=== PATIENT | female | born 1995 ===

== ENCOUNTER 2017-09-15 14:18 | Emergency (ER) | payer OTHER ==
[2017-09-15 14:24] VITALS: O2SAT 100
[2017-09-15] MEDS ORDERED: Sodium Chloride 0.9% 1,000 ML IV ONE (14:30)
--- NOTE | 2017-09-15 14:38 | C.PDOC ---
History Of Present Illness 22 y/o female , Miscarriage 1, presents to ED for complaints of pelvic pain that began today. Patient is 10 weeks . She reports having an US done 3 days ago. Denies urinary symptoms, vaginal discharge or bleeding. Time Seen by Provider: 09/15/17 14:26 Chief Complaint (Nursing): Female Genitourinary History Per: Patient History/Exam Limitations: no limitations Onset/Duration Of Symptoms: Hrs Current Symptoms Are (Timing): Still Present Quality Of Discomfort: "Pain" Associated Symptoms: denies: Fever, Chills, Nausea, Vomiting, Diarrhea, Urinary Symptoms Alleviating Factors: None Recent travel outside of the [place]: No Abnormal Vaginal Bleeding: No : 2 Para: 0 Miscarriage: 1 Past Medical History Reviewed: Historical Data, Nursing Documentation, Vital Signs Vital Signs: Last Vital Signs Temp 98.6 F 09/15/17 14:20 Pulse 105 H 09/15/17 14:20 Resp 16 09/15/17 14:20 BP 118/78 09/15/17 14:20 Pulse Ox 100 09/15/17 17:04 - Medical History PMH: No Chronic Diseases Surgical History: No Surg Hx Family History: States: No Known Family Hx - Social History Hx Alcohol Use: No Hx Substance Use: No - Immunization History Hx Tetanus Toxoid Vaccination: No Hx Influenza Vaccination: No Hx Pneumococcal Vaccination: No Review Of Systems Constitutional: Negative for: Fever, Chills Gastrointestinal: Negative for: Nausea, Vomiting, Abdominal Pain, Diarrhea Genitourinary: Positive for: Pelvic Pain. Negative for: Dysuria, Hematuria, Vaginal Discharge, Vaginal Bleeding Skin: Negative for: Rash Neurological: Negative for: Weakness, Numbness Physical Exam - Physical Exam Appears: Well, Non-toxic, No Acute Distress Skin: Normal Color, Warm, Dry Eye(s): bilateral: Normal Inspection, PERRL, EOMI Oral Mucosa: Moist Chest: Symmetrical, No Tenderness Cardiovascular: Rhythm Regular, No Murmur Respiratory: Normal Breath Sounds, No Decreased Breath Sounds, No Rales, No Rhonchi, No Wheezing Gastrointestinal/Abdominal: Soft, No Tenderness (Suprapubic ), Other (Obese) Pelvic: No Vaginal Bleeding, No Vaginal Discharge Extremity: Normal ROM Neurological/Psych: Oriented x3, Normal Speech, Normal Cognition Gait: Steady ED Course And Treatment - Laboratory Results Result Diagrams: 09/15/17 14:51 09/15/17 14:51 Lab Interpretation: Abnormal (QHCG 12,771, Rh O+) Urine POC: Positive O2 Sat by Pulse Oximetry: 100 (RA) Pulse Ox Interpretation: Normal - CT Scan/US Obstetrics US Other Rad Studies (CT/US): Read By Radiologist, Radiology Report Reviewed CT/US Interpretation: PROCEDURE: OB Pelvic Ultrasound. HISTORY: 11 wks, pelvic pain. Patient's last menstrual period is reported 06/29/2017 suggesting 11 week 1 day gestation. COMPARISON: None available. FINDINGS: UTERUS: The uterus is anteverted measuring 8.8 x 6.8 x 7.4 cm with cervical length of 3.0 cm. A gestational sac is identified within the endometrial cavity with a mean sac diameter 3.52 cm. N and membrane, pole and yolk sac have been identified by the platform builder. Mean pole length is 0.9 cm corresponds average ultrasonic age of 6 weeks 6 days which is discrepant from 8 weeks 5 days mean sac diameter derived dates. Both the discrepant from the LMP derived dates. Hypoechoic changes at the inferior margins of the decidual reaction are suggestive of small subchorionic hemorrhage. cardiac activity is not identified suggesting demise. CERVIX: As above. RIGHT OVARY: Measures 2.8 x 1.4 x 2.0 cm. No mass lesion. Normal flow. Small follicle is identified measuring up to 8 mm greatest dimension. LEFT OVARY: Measures 2.9 x 2.0 x 2.5 cm. No solid mass. Normal flow. Corpus luteum cyst is identified measure 1.7 cm. FREE FLUID: None. OTHER FINDINGS: None. IMPRESSION: A single intrauterine gestation is identified with average ultrasonic age of 6 weeks 6 days, discrepant from gestational sac mean diameter indicating 8 weeks 5 days. Both measurements are discrepant from LMP derived dates of 11 weeks 1 day. No cardiac activity is recorded at the pole, suggesting demise. Small subchorionic hemorrhage is suggested inferiorly. Serial beta HCG analysis is recommend for follow-up as well as one-week follow-up ultrasound examination. Reevaluation Time: 17:03 Reassessment Condition: Unchanged Medical Decision Making Medical Decision Making: Administered IV fluids. Ordered blood work, urinalysis, and Transvaginal US. demise, threatened Ab Disposition Doctor Will See Patient In The: Office Counseled Patient/Family Regarding: Studies Performed, Diagnosis - Disposition Disposition: HOME/ ROUTINE Disposition Time: 17:03 Condition: GOOD Forms: [facility] (Bengali) - Clinical Impression Clinical Impression: - Scribe Statement The provider has reviewed the documentation as recorded by the Rodrigueibmartinez Veras All medical record entries made by the Rodrigueibmartinez were at my direction and personally dictated by me. I have reviewed the chart and agree that the record accurately reflects my personal performance of the history, physical exam, medical decision making, and the department course for this patient. I have also personally directed, reviewed, and agree with the discharge instructions and disposition.
[2017-09-15 14:57] LABS: BASO % 0.7 % (0.0-2.0); EOS % 0.7 % (0.0-4.0); HEMOGLOBIN 12.9 g/dL (11.0-16.0); LYMPH # 1.9 K/uL (1.0-4.3); LYMPH % 35.5 % (20.0-40.0); MEAN CELL VOLUME 90.1 fL (81.0-99.0); MEAN CORPUSCULAR HEMOGLOBIN 31.6 pg (27.0-31.0); MEAN CORPUSCULAR HGB CONC 35.1 g/dL (33.0-37.0); MEAN PLATELET VOLUME 9.4 fL (7.2-11.7); MONO # 0.4 K/uL (0.0-0.8); MONO % 7.5 % (0.0-10.0); NEUT # 2.9 K/uL (1.8-7.0); NEUT % 55.6 % (50.0-75.0); RBC 4.08 Mil/uL (3.80-5.20); WHITE BLOOD COUNT 5.2 K/uL (4.8-10.8)
[2017-09-15 15:16] LABS: ALB/GLOB RATIO 1.2 (1.0-2.1); ALBUMIN 4.1 g/dL (3.5-5.0); ALT/SGPT 20 U/L (9-52); AST/SGOT 20 U/L (14-36); BLOOD UREA NITROGEN 9 mg/dL (7-17); CALCIUM 9.5 mg/dl (8.6-10.4); GFR AFRICAN-AMERICAN > 60; GFR NON-AFRICAN AMERICAN > 60; HCG,QUALITATIVE URINE POSITIVE (NEGATIVE)
[2017-09-15 15:25] LABS: SQUAMOUS EPITHIAL 3 /hpf (0-5); URINE AMORPHOUS SEDIMENT OCC /ul (<OCC); URINE BACTERIA RARE (<OCC); URINE BILIRUBIN NEGATIVE (NEGATIVE); URINE BLOOD NEGATIVE (NEGATIVE); URINE CLARITY Hazy (Clear); URINE COLOR Yellow (YELLOW); URINE GLUCOSE (UA) NORMAL (Normal); URINE LEUKOCYTE ESTERASE NEG Leu/uL (Negative); URINE PROTEIN NEGATIVE (NEGATIVE); URINE UROBILINOGEN NORMAL mg/dL (0.2-1.0)
--- NOTE | 2017-09-15 16:58 | US ---
PROCEDURE: OB Pelvic Ultrasound HISTORY: 11 wks, pelvic pain Patient's last menstrual period is reported 06/29/2017 suggesting 11 week 1 day gestation. COMPARISON: None available. FINDINGS: UTERUS: The uterus is anteverted measuring 8.8 x 6.8 x 7.4 cm with cervical length of 3.0 cm. A gestational sac is identified within the endometrial cavity with a mean sac diameter 3.52 cm. N and membrane, pole and yolk sac have been identified by the stick roller. Mean pole length is 0.9 cm corresponds average ultrasonic age of 6 weeks 6 days which is discrepant from 8 weeks 5 days mean sac diameter derived dates. Both the discrepant from the LMP derived dates. Hypoechoic changes at the inferior margins of the decidual reaction are suggestive of small subchorionic hemorrhage. cardiac activity is not identified suggesting demise. CERVIX: As above. RIGHT OVARY: Measures 2.8 x 1.4 x 2.0 cm. No mass lesion. Normal flow. Small follicle is identified measuring up to 8 mm greatest dimension. LEFT OVARY: Measures 2.9 x 2.0 x 2.5 cm. No solid mass. Normal flow. Corpus luteum cyst is identified measure 1.7 cm. FREE FLUID: None. OTHER FINDINGS: None. IMPRESSION: A single intrauterine gestation is identified with average ultrasonic age of 6 weeks 6 days, discrepant from gestational sac mean diameter indicating 8 weeks 5 days. Both measurements are discrepant from LMP derived dates of 11 weeks 1 day. No cardiac activity is recorded at the pole, suggesting demise. Small subchorionic hemorrhage is suggested inferiorly. Serial beta HCG analysis is recommend for follow-up as well as one-week follow-up ultrasound examination.
[2017-09-15 17:11] VITALS: BP 108/76; PULSE 82; RESP 18; TEMP 98.8
== END 2017-09-15 17:13 | disposition home or self-care (01) ==
LOC: C.ER 14:18
DX: O26.91 Pregnancy related conditions, unspecified, first trimester (principal); Z3A.01 Less than 8 weeks gestation of pregnancy
CPT/HCPCS: 76805; 76817; 80053; 81001; 84702; 84703; 85025; 86850; 86900; 96360; 99285; J7040